=== PATIENT | female | born 1990 | race Caucasian/White ===

== ENCOUNTER 2019-04-08 08:42 | Emergency (ER) | payer MEDICAID ==
[2019-04-08] MEDS: TETRACAINE 0.5% 4 ML OPH BOTH EYES (09:30)
[2019-04-08] MEDS: ACETAMINOPHEN 325 MG TAB PO (09:39)
== END 2019-04-08 11:34 | disposition home or self-care (01) ==
LOC: FTE 08:42
DX: H57.89 Other specified disorders of eye and adnexa (principal)
CPT/HCPCS: 76536; 99284-25